=== PATIENT | female | born 2000 | race Caucasian/White ===

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

== ENCOUNTER 2018-01-05 09:21 | Emergency (ER) | payer OTHER ==
[2018-01-05 09:27] VITALS: BP 114/60
--- NOTE | 2018-01-05 10:07 | RADIOLOGY REPORT (SQ) ---
EXAM DESCRIPTION: HAND RIGHT 3 VIEWS COMPLETED DATE/TIME: 01/05/2018 9:58 am REASON FOR STUDY: right middle digit pain COMPARISON: None. EXAM PARAMETERS: NUMBER OF VIEWS: Three views. TECHNIQUE: AP, lateral and oblique radiographic images acquired of the right hand. LIMITATIONS: None. FINDINGS: MINERALIZATION: Normal. BONES: No acute fracture or dislocation. No worrisome bone lesions. JOINTS: No effusions. SOFT TISSUES: No soft tissue swelling. No foreign body. OTHER: No other significant finding. IMPRESSION: 1. NEGATIVE STUDY OF THE RIGHT HAND. TECHNICAL DOCUMENTATION: JOB ID: [id number] [employer]- All Rights Reserved Reading location - IP/workstation name: [email or web address]
[2018-01-05] MEDS ORDERED: IBUPROFEN 600 MG TABLET PO ONE (10:12)
--- NOTE | 2018-01-05 10:17 | ER Document Report ---
HPI - HPI Pain Level: 3 Notes: Patient is a 17-year-old female no significant past medical history who presents to the ED complaining of right third digit pain of her hand status post injury yesterday. Patient states that she got her finger hyperextended and now has pain to the middle and distal part of her finger. She has not noticed any obvious swelling. Denies any IV drug use. She has used some Tylenol for her pain. Denies any headache, fever, URI, sore throat, chest pain , palpitations, syncope, cough, shortness of breath, wheeze, dyspnea, abdominal pain, nausea/vomiting/diarrhea, urinary retention, dysuria, hematuria, numbness/ tingling, muscle paralysis/weakness, or rash. - ROS Systems Reviewed and Negative: Yes All other systems reviewed and negative - CONSTITUTIONAL Constitutional: DENIES: Fever, Chills - EENT EENT: DENIES: Sore Throat, Ear Pain - NEURO Neurology: DENIES: Headache, Weakness, Vision blurred, Dizzinesss / Vertigo - CARDIOVASCULAR Cardiovascular: DENIES: Chest pain - RESPIRATORY Respiratory: DENIES: Trouble Breathing, Coughing - GASTROINTESTINAL Gastrointestinal: DENIES: Abdominal Pain, Black / Bloody Stools - URINARY Urinary: DENIES: Dysuria, Urgency, Frequency - REPRODUCTIVE Reproductive: REPORTS: : - MUSCULOSKELETAL Musculoskeletal: REPORTS: Extremity pain Past Medical History - Social History Smoking Status: Never Smoker Chew tobacco use (# tins/day): No Frequency of alcohol use: None Drug Abuse: None Family History: None Patient has suicidal ideation: No Patient has homicidal ideation: No Pulmonary Medical History: Reports: Hx Asthma Neurological Medical History: Reports: Hx Migraine Renal/ Medical History: Denies: Hx Peritoneal Dialysis Psychiatric Medical History: Reports: Hx Depression Past Surgical History: Reports: Other - Knee surgery Vertical Provider Document - CONSTITUTIONAL Agree With Documented VS: Yes Notes: PHYSICAL EXAMINATION: GENERAL: Well-appearing, well-nourished and in no acute distress LUNGS: Breath sounds clear to auscultation bilaterally and equal. No wheezes rales or rhonchi. HEART: Regular rate and rhythm without murmurs, rubs, gallops. Musculoskeletal: Rt hand/3rd digit: + minimal ecchymosis. No deformity or swelling otherwise. FROM to passive/active. Strength 5+/5. N/V intact distal. + tenderness to the distal phalange and near the PIP joint. No obvious ligamentous instability. Extremities: No cyanosis, clubbing, or edema b/l. Peripheral pulses 2+. Capillary refill less than 3 seconds. NEUROLOGICAL: Normal speech, normal gait. Normal sensory, motor exams PSYCH: Normal mood, normal affect. SKIN: see above. - INFECTION CONTROL TRAVEL OUTSIDE OF THE [place] IN LAST 30 DAYS: No Course - Re-evaluation Re-evalutation: 01/05/18 10:15 Patient is an afebrile, well-hydrated, 17-year-old female who presents to the ED with Rt finger pain 3rd digit which I suspect to be a sprain versus strain. Vitals are acceptable without any significant tachycardia, tachypnea, or hypoxia. PE is otherwise unremarkable for any neurovascular compromise, obvious tendon/ligament rupture, obvious fracture/dislocation, septic joint. X- ray was unremarkable for any acute pathology. splint provided today. Motrin given PO. Patient is nontoxic-appearing. No other labs or imaging warranted at this time based on H&P. Conservative measures otherwise for symptoms. Recheck with your PCM in 3-5 days. Consider consult orthopedics. Return to the ED with any worsening/concerning symptoms otherwise as reviewed in discharge. Patient is in agreement. - Vital Signs Vital signs: Temp Pulse Resp BP Pulse Ox 98.3 F 97 H 18 114/60 100 01/05/18 09:25 01/05/18 09:25 01/05/18 09:25 01/05/18 09:25 01/05/18 09:25 Discharge - Discharge Clinical Impression: Finger pain, right Condition: Stable Disposition: HOME, SELF-CARE Additional Instructions: Rest, Ice, Compression, Elevation Use splint as directed Tylenol/ibuprofen as needed Light stretches daily Strength exercises as able Moist heat and massage may help F/u with your PCP in 3-5 days for a recheck Consider consult(s) with Orthopedics/physical therapy for ongoing/worsening symptoms Return to the ED with any worsening symptoms and/or development of fever, headache, chest pain, palpitations, syncope, shortness of breath, trouble breathing, abdominal pain, n/v/d, muscle weakness/paralysis, numbness/tingling, swelling, redness, or other worsening symptoms that are concerning to you. Referrals: [facility]) [Provider Group] - Follow up as needed
== END 2018-01-05 10:22 | disposition home or self-care (01) ==
LOC: ER 09:21
DX: S60.031A Contusion of right middle finger without damage to nail, initial encounter (principal); M79.644 Pain in right finger(s); X50.0XXA Overexertion from strenuous movement or load, initial encounter; J45.909 Unspecified asthma, uncomplicated
CPT/HCPCS: 99283

== ENCOUNTER 2018-02-20 08:18 | Emergency (ER) | payer OTHER ==
--- NOTE | 2018-02-20 08:45 | ER Document Report ---
ED General - General Chief Complaint: Abdominal Pain Stated Complaint: ABDOMINAL PAIN Time Seen by Provider: 02/20/18 08:45 Notes: Patient is a 17-year-old female that presents to the emergency department for chief complaint of nausea, vomiting and epigastric abdominal pain. Patient reports she has been having the symptoms over the course of the weekend, where she is not been able to keep much food down anything that she drank she starts having vomiting immediately afterwards. She has had pain in the epigastric region, which she does have a history of GERD in the past. She is also had pain in her right upper quadrant. Denies having any associated diarrhea. Denies any lower abdominal pain, dysuria, hematuria, vaginal bleeding or discharge. She does not believe that she is . She currently rates the pain as a 2 out of 10, she did take Pepto-Bismol prior to ED arrival which did give her some relief. Past Medical History: GERD, peptic ulcer disease Past Surgical History: knee surgery Social History: Denies tobacco, ETOH, or drug use. Family History: Reviewed and noncontributory for presenting illness Allergies: Reviewed, see documented allergy list. REVIEW OF SYSTEMS: Other than noted above, the 12 point review of systems was reviewed with the patient and were negative, all pertinent findings are included in the HPI. PHYSICAL EXAMINATION: Vital signs reviewed, nursing noted reviewed. GENERAL: Well-appearing, well-nourished and in no acute distress. HEAD: Atraumatic, normocephalic. EYES: Eyes appear normal, extraocular movements intact, sclera anicteric, conjunctiva are normal. ENT: nares patent, oropharynx clear without exudates. Moist mucous membranes. NECK: Normal range of motion, supple without lymphadenopathy LUNGS: Breath sounds clear to auscultation bilaterally and equal. No wheezes rales or rhonchi. HEART: Regular rate and rhythm without murmurs ABDOMEN: Soft, ruq abdominal pain with palpation, equivical hyde's sign, normoactive bowel sounds. No rebound, guarding, or rigidity. No masses appreciated. EXTREMITIES: Nontender, good range of motion, no pitting or edema. NEUROLOGICAL: No focal neurological deficits. Moves all extremities spontaneously Motor and sensory grossly intact on exam. PSYCH: Normal mood, normal affect. SKIN: Warm, Dry, normal turgor, no rashes or lesions noted on exposed skin TRAVEL OUTSIDE OF THE [place] IN LAST 30 DAYS: No - Related Data Allergies/Adverse Reactions: cephalexin [From Keflex] Allergy (Verified 01/05/18 09:22) Past Medical History - Social History Smoking Status: Never Smoker Family History: None, Reviewed & Not Pertinent Pulmonary Medical History: Reports: Hx Asthma Neurological Medical History: Reports: Hx Migraine Renal/ Medical History: Denies: Hx Peritoneal Dialysis Psychiatric Medical History: Reports: Hx Depression Past Surgical History: Reports: Other - Knee surgery Physical Exam - Vital signs Vitals: Temp Pulse Resp BP Pulse Ox 97.9 F 85 14 119/59 L 100 02/20/18 08:22 02/20/18 08:22 02/20/18 08:22 02/20/18 08:22 02/20/18 08:22 Course - Re-evaluation Re-evalutation: Patient seen and examined vital signs reviewed. Laboratory data and imaging were ordered as appropriate for the patient's presenting symptoms and complaint, with consideration of any critical or life threatening conditions that may be associated with their obtained history and exam as noted above. Patient was treated with phenergan and IVF and pepcid Results were reviewed when available and demonstrated RUQ US was positive for gallstones, but no other acute signs of cholecystitis, clinically and with normal laboratory data, the patient does not seem to have acute cholecystitis. Her HCG test was also positive and serum quant verified this. The patient was re-evaluated and was improved Evaluation was most consistent with cholithiasis with biliary colic and , I advised follow -up with [employer] and to avoid fatty foods, and gave prescription for phenergan to take as needed for nausea. Results were discussed with the patient at this point, after careful consideration I feel that that patient can be discharged from the emergency department, the patient was educated treatments and reasons to return to the emergency department based on their presumed diagnosis as noted above, they were advised to followup with a primary care physician in 2-3 days. Patient was agreeable to plan of care. *Note is created using voice recognition software and may contain spelling, syntax or grammatical errors. Laboratory 02/20/18 02/20/18 02/20/18 08:45 08:45 08:45 WBC 6.9 RBC 4.57 Hgb 13.9 Hct 40.3 MCV 88 MCH 30.3 MCHC 34.4 RDW 13.4 Plt Count 223 Seg Neutrophils % 71.7 Lymphocytes % 24.0 Monocytes % 3.5 Eosinophils % 0.3 Basophils % 0.5 Absolute Neutrophils 5.0 Absolute Lymphocytes 1.7 Absolute Monocytes 0.2 Absolute Eosinophils 0.0 Absolute Basophils 0.0 Sodium 139.3 Potassium 4.1 Chloride 104 Carbon Dioxide 24 Anion Gap 11 BUN 4 L Creatinine 0.50 L Est GFR ( Amer) > 60 Est GFR (Non-Af Amer) > 60 Glucose 86 Calcium 9.6 Total Bilirubin 0.5 Direct Bilirubin 0.2 Neonat Total Bilirubin Not Reportable Neonat Direct Bilirubin Not Reportable Neonat Indirect Bili Not Reportable AST 14 ALT 9 Alkaline Phosphatase 47 L Total Protein 7.2 Albumin 4.1 Lipase 48.7 Beta HCG, Quant 16748.00 H Total Beta HCG POSITIVE Urine Color YELLOW Urine Appearance CLOUDY Urine pH 6.0 Ur Specific [place] 1.017 Urine Protein NEGATIVE Urine Glucose (UA) NEGATIVE Urine Ketones NEGATIVE Urine Blood NEGATIVE Urine Nitrite NEGATIVE Urine Bilirubin NEGATIVE Urine Urobilinogen NEGATIVE Ur Leukocyte Esterase NEGATIVE Urine WBC (Auto) 1 Urine RBC (Auto) 2 Urine Bacteria (Auto) TRACE Squamous Epi Cells Auto 22 Urine Mucus (Auto) MANY Urine Ascorbic Acid NEGATIVE Urine HCG, Qual POSITIVE H Abdomen Ultrasound 02/20/18 09:06 IMPRESSION: Gallstones with positive sonographic Hyde's sign. No pericholecystic edema or wall thickening. - Vital Signs Vital signs: Temp Pulse Resp BP Pulse Ox 98.2 F 68 18 118/74 100 02/20/18 13:07 02/20/18 13:07 02/20/18 13:07 02/20/18 13:07 02/20/18 13:07 - Laboratory Result Diagrams: 02/20/18 08:45 02/20/18 08:45 Laboratory results interpreted by me: 02/20/18 02/20/18 08:45 08:45 BUN 4 L Creatinine 0.50 L Alkaline Phosphatase 47 L Beta HCG, Quant 12489.00 H Urine HCG, Qual POSITIVE H Discharge - Discharge Clinical Impression: Biliary colic Cholelithiasis Qualifiers: Cholelithiasis location: gallbladder Cholecystitis presence: without cholecystitis Qualifiers: Weeks of gestation: unspecified Qualified Code(s): Z34.90 - Encounter for supervision of normal , unspecified, unspecified trimester Condition: Stable Disposition: HOME, SELF-CARE Instructions: Abdominal Pain ([facility]), Gallbladder Disease ([facility]), ([facility]) Prescriptions: Promethazine HCl [Phenergan 25 mg Tablet] 1 tab PO Q8H PRN #15 tablet PRN Reason: nausea/vomiting Referrals: [facility] [Provider Group] - Follow up in 3-5 days
[2018-02-20] MEDS ORDERED: NORMAL SALINE 1000 ML 1,000 ML IV ONE (09:06)
[2018-02-20] MEDS ORDERED: ONDANSETRON HCL INJ/PF 4 MG/2 ML SDV IV ONE (09:07)
[2018-02-20] MEDS ORDERED: FAMOTIDINE INJ/PF 20 MG/2 ML SDV IV ONE (09:07)
[2018-02-20 09:12] LABS: APPEARANCE,URINE CLOUDY; BILIRUBIN,URINE NEGATIVE (NEGATIVE); COLOR,URINE YELLOW; GLUCOSE, URINE NEGATIVE (NEGATIVE); KETONES,URINE NEGATIVE (NEGATIVE); LEUKOCYTE ESTERASE,URINE NEGATIVE (NEGATIVE); NITRITE,URINE NEGATIVE (NEGATIVE); PROTEIN,URINE NEGATIVE (NEGATIVE); URINE SPECIFIC GRAVITY 1.017; UROBILINOGEN,URINE NEGATIVE mg/dL (<2.0)
[2018-02-20] MEDS ORDERED: PROMETHAZINE HCL INJ 25 MG/1 ML VIAL IV ONE (09:19)
--- NOTE | 2018-02-20 11:04 | RADIOLOGY REPORT (SQ) ---
EXAM DESCRIPTION: U/S ABDOMEN LIMITED W/O DOP COMPLETED DATE/TIME: 02/20/2018 10:48 am REASON FOR STUDY: ruq pain COMPARISON: None. TECHNIQUE: Dynamic and static grayscale images acquired of the abdomen and recorded on PACS. Additio nal selected color Doppler and spectral images recorded. LIMITATIONS: None. FINDINGS: PANCREAS: No masses. Visualized pancreatic duct normal caliber. LIVER: No masses. Echotexture normal. LIVER VASCULATURE: Normal directional flow of the main portal vein and hepatic veins. GALLBLADDER: There are gallstones. No wall thickening. No pericholecystic edema. ULTRASOUND-DETECTED HYDE'S SIGN: Positive. INTRAHEPATIC DUCTS AND COMMON DUCT: CBD and intrahepatic ducts normal caliber. No filling defects. INFERIOR VENA CAVA: Normal flow. AORTA: No aneurysm. RIGHT KIDNEY: Normal size. Normal echogenicity. No solid or suspicious masses. No hydronephrosis. No calcifications. PERITONEAL AND RIGHT PLEURAL SPACE: No ascites or effusions. OTHER: No other significant findings. IMPRESSION: Gallstones with positive sonographic Hyde's sign. No pericholecystic edema or wall th ickening. TECHNICAL DOCUMENTATION: JOB ID: [id number] [employer]- All Rights Reserved Reading location - IP/workstation name: [email or web address]
[2018-02-20 11:21] LABS: ABSOLUTE LYMPHOCYTES (AUTO) 1.7 10^3/uL (0.5-4.7); ABSOLUTE MONOCYTES (AUTO) 0.2 10^3/uL (0.1-1.4); BASOPHILS % (AUTO) 0.5 % (0-2); EOSINOPHILS % (AUTO) 0.3 % (0-6); HEMATOCRIT 40.3 % (36.0-47.0); HEMOGLOBIN 13.9 g/dL (12.0-15.5); MEAN CORPUSCULAR HEMOGLOBIN 30.3 pg (27.0-33.4); MEAN CORPUSCULAR HGB CONC 34.4 g/dL (32.0-36.0); MEAN CORPUSCULAR VOLUME 88 fl (80-97); MONOCYTES % (AUTO) 3.5 % (3-13); PLATELET COUNT 223 10^3/uL (150-450); RED BLOOD COUNT 4.57 10^6/uL (3.72-5.28); RED CELL DISTRIBUTION WIDTH 13.4 % (11.5-14.0); SEGMENTED NEUTROPHILS % (AUTO) 71.7 % (42-78); TOTAL CELLS COUNTED % (AUTO) 100 %; WHITE BLOOD COUNT 6.9 10^3/uL (4.0-10.5)
[2018-02-20 11:45] LABS: ALANINE AMINOTRANSFERASE 9 U/L (5-35); ALBUMIN 4.1 g/dL (3.7-5.6); ALKALINE PHOSPHATASE 47 U/L (50-135); ANION GAP 11 (5-19); ASPARTATE AMINO TRANSFERASE 14 U/L (5-30); BILIRUBIN,DIRECT 0.2 mg/dL (0.0-0.4); BILIRUBIN,TOTAL 0.5 mg/dL (0.2-1.3); BLOOD UREA NITROGEN 4 mg/dL (7-20); CALCIUM 9.6 mg/dL (8.4-10.2); CARBON DIOXIDE 24 mmol/L (22-30); CHLORIDE 104 mmol/L (98-107); GLUCOSE 86 mg/dL (75-110); LIPASE 48.7 U/L (23-300); POTASSIUM 4.1 mmol/L (3.6-5.0); SODIUM 139.3 mmol/L (137-145); TOTAL PROTEIN 7.2 g/dL (6.3-8.2)
[2018-02-20 13:08] VITALS: BP 118/74
== END 2018-02-20 13:09 | disposition home or self-care (01) ==
LOC: ER 08:18
DX: O99.611 Diseases of the digestive system complicating pregnancy, first trimester (principal); K80.70 Calculus of gallbladder and bile duct without cholecystitis without obstruction; R10.13 Epigastric pain; O21.9 Vomiting of pregnancy, unspecified; K21.9 Gastro-esophageal reflux disease without esophagitis
CPT/HCPCS: 99284; 96361; 96374; 96375; 36415; 84702; 83690; 85025; 81025; 80053; 81001; 76705; J2550; J7030; S0028

== ENCOUNTER 2018-02-23 16:27 | Emergency (ER) | payer OTHER ==
[2018-02-23] MEDS ORDERED: NORMAL SALINE 1000 ML 1,000 ML IV ONE (18:26)
--- NOTE | 2018-02-23 19:03 | ER Document Report ---
ED GI/ - General Chief Complaint: Abdominal Pain Stated Complaint: ABDOMINAL PAIN, VOMITING Time Seen by Provider: 02/23/18 18:25 Mode of Arrival: Ambulatory Information source: Patient Notes: 17-year-old female presented to ED for complaint of right upper abdominal pain. She states she has had nausea and vomiting all day. She states she was diagnosed with gallstones a couple days ago as well as . She states she is not able to keep any fluids down. She has a 4-month-old baby at home. She states she knows that she is can be nauseated throughout her whole . She states she tried to eat macaroni and cheese earlier today and became extremely nauseated with pain. States she went to her primary care doctor and they sent her to the ED as she is and cannot hold down fluids or food. Patient is alert and oriented respirations regular and unlabored and in no acute distress when she was evaluated. TRAVEL OUTSIDE OF THE [place] IN LAST 30 DAYS: No - HPI Patient complains to provider of: Abdominal pain, - She was told she was about a couple weeks , Vomiting, Other - Was diagnosed with gallstones recently Onset: Other - States she knows she has gallstones and she followed up with her primary doctor as she was told. She states she had another severe episode of abdominal pain and nausea vomiting today after trying to eat macaroni and cheese. Quality of pain: Sharp Severity at maximum: Moderate Severity in ED: Moderate Pain Level: 3 Location: RUQ Menstrual period history: : 2 Para: 1 heart tones (bpm): 168 - On ultrasound EDC: 09/09/18 OB ultrasound done: Yes Associated symptoms: Nausea, Vomiting Exacerbated by: Food Relieved by: Denies Similar symptoms previously: Yes Recently seen / treated by doctor: Yes - Related Data Allergies/Adverse Reactions: cephalexin [From Keflex] Allergy (Verified 02/23/18 16:29) Past Medical History - General Information source: Patient - Social History Smoking Status: Never Smoker Frequency of alcohol use: None Drug Abuse: None Family History: None, Reviewed & Not Pertinent Patient has suicidal ideation: No Patient has homicidal ideation: No - Past Medical History Cardiac Medical History: Reports: None Pulmonary Medical History: Reports: Hx Asthma EENT Medical History: Reports: None Neurological Medical History: Reports: Hx Migraine Endocrine Medical History: Reports: None Renal/ Medical History: Reports: None Malignancy Medical History: Reports: None GI Medical History: Reports: Other - gallstones Musculoskeletal Medical History: Reports Hx Musculoskeletal Trauma Skin Medical History: Reports None Psychiatric Medical History: Reports: Hx Depression Traumatic Medical History: Reports: None Infectious Medical History: Reports: None Past Surgical History: Reports: Hx Orthopedic Surgery - Knee surgery for ligament damage Review of Systems - Review of Systems Notes: REVIEW OF SYSTEMS: CONSTITUTIONAL : Denies fever, chills, or sweats. Denies recent illness. EENT: Denies eye, ear, throat, or mouth pain or symptoms. Denies nasal or sinus congestion or discharge. Denies throat, tongue, or mouth swelling or difficulty swallowing. CARDIOVASCULAR: Denies chest pain. Denies palpitations or racing or irregular heart beat. Denies ankle edema. RESPIRATORY: Denies cough, cold, or chest congestion. Denies shortness of breath, difficulty breathing, or wheezing. GASTROINTESTINAL: 17-year-old female presented to ED for complaint of nausea vomiting upper abdominal pain and . She states she was just seen a couple days ago and diagnosed with gallstones and that she was a couple weeks . She went to her primary care doctor to get a referral to CALL OUT CLERK and follow-up for the gallstones. The she states they sent her to the ED for severe nausea and vomiting and upper abdominal pain after she ate macaroni and cheese. Denies blood in vomitus, stools, or per rectum. Denies black, tarry stools. Denies constipation. GENITOURINARY: Denies difficulty urinating, painful urination, burning, frequency, blood in urine, or discharge. FEMALE GENITOURINARY: Denies vaginal bleeding, heavy or abnormal periods, irregular periods. Denies vaginal discharge or odor. MUSCULOSKELETAL: Denies back or neck pain or stiffness. Denies joint pain or swelling. SKIN: Denies rash, lesions or sores. HEMATOLOGIC : Denies easy bruising or bleeding. LYMPHATIC: Denies swollen, enlarged glands. NEUROLOGICAL: Denies confusion or altered mental status. Denies passing out or loss of consciousness. Denies dizziness or lightheadedness. Denies headache. Denies weakness or paralysis or loss of use of either side. Denies problems with gait or speech. Denies sensory loss, numbness, or tingling. Denies seizures. PHYSICAL EXAMINATION: GENERAL: Well-appearing, well-nourished and in no acute distress. HEAD: Atraumatic, normocephalic. EYES: Pupils equal round and reactive to light, extraocular movements intact, conjunctiva are normal. ENT: Nares patent, oropharynx clear without exudates. Moist mucous membranes. NECK: Normal range of motion, supple without lymphadenopathy LUNGS: Breath sounds clear to auscultation bilaterally and equal. No wheezes rales or rhonchi. HEART: Regular rate and rhythm without murmurs ABDOMEN: Right upper quadrant abdominal tenderness, no guarding, no rebound. No masses appreciated. Female : deferred Musculoskeletal: Normal range of motion, no pitting or edema. No cyanosis. NEUROLOGICAL: Cranial nerves grossly intact. Normal speech, normal gait. Normal sensory, motor exams PSYCH: Normal mood, normal affect. SKIN: Warm, Dry, normal turgor, no rashes or lesions noted. PSYCHIATRIC: Denies anxiety or stress. Denies depression, suicidal ideation, or homicidal ideation. ALL OTHER SYSTEMS REVIEWED AND NEGATIVE. Dictation was performed using [employer] voice recognition software Physical Exam - Vital signs Vitals: Temp Pulse Resp BP Pulse Ox 98.3 F 97 H 16 120/68 99 02/23/18 16:32 02/23/18 16:32 02/23/18 16:32 02/23/18 16:32 02/23/18 16:32 Course - Re-evaluation Re-evalutation: 02/24/18 02:57 Patient given instructions on diet for gallbladder disease while . Surgery was consulted while patient was here and they stated that due to the fact that she is 13 weeks that they would try to hold off until after delivery of the baby before doing the surgery on the gallstones. She will need to be monitored by her primary care doctor and her CALL OUT CLERK. He stated that surgery would not be completed and that she developed cholecystitis. Ultrasound demonstrated that there was no cholecystitis at this time. There is no fever no elevated white count. - Vital Signs Vital signs: Temp Pulse Resp BP Pulse Ox 99.0 F 99 H 20 129/67 H 99 02/23/18 21:17 02/23/18 21:17 02/23/18 21:17 02/23/18 21:17 02/23/18 21:17 - Laboratory Result Diagrams: 02/23/18 18:47 02/23/18 18:47 Laboratory results interpreted by me: 02/23/18 02/23/18 02/23/18 18:47 18:47 18:47 Monocytes % 2.4 L BUN 4 L Creatinine 0.50 L Serum HCG, Qual POSITIVE H Urine Ketones 02/23/18 18:47 Monocytes % BUN Creatinine Serum HCG, Qual Urine Ketones 20 H - Diagnostic Test Radiology reviewed: Image reviewed, Reports reviewed Discharge - Discharge Clinical Impression: Cholelithiasis Qualifiers: Cholelithiasis location: gallbladder Cholecystitis presence: without cholecystitis Biliary obstruction: without biliary obstruction Qualified Code(s) : K80.20 - Calculus of gallbladder without cholecystitis without obstruction Qualifiers: Weeks of gestation: 13 weeks Qualified Code(s): Z3A.13 - 13 weeks gestation of Condition: Stable Disposition: HOME, SELF-CARE Additional Instructions: Gallbladder Disease Your evaluation shows evidence of gallbladder disease. The gallbladder is a pouch under the liver which stores bile. Stones, infection, or irritation of the gallbladder cause attacks of pain. Certain foods -- fats in particular -- may provoke attacks. The usual treatment for gallbladder disease is surgical removal of the gallbladder -- called a cholecystectomy. You will be referred to a physician qualified to advise you on the best treatment for your problem. Hospitalization is not necessary. Take clear liquids only until you are painfree. After that, you should stay on a low-fat diet, with frequent SMALL meals. Call the doctor or return at once if you develop severe pain, repeated vomiting, fever, or jaundice (a yellow color in the skin and whites of the eyes) . You cannot eat any fatty or spicy foods as this will cause you pain. While you are they are going to try to not do the surgery to remove your gallbladder. You will need to be careful what you eat at all times throughout your . Follow-up with your primary doctor and get your referral to your CALL OUT CLERK as you are is 13 weeks . At this stage of they try not to do surgery unless absolutely necessary. Your gallbladder is not infected at this time it is just gallstones. Antinausea Medication You have been given a medication to suppress nausea and vomiting. This type of medication can be given as a shot, pill, or suppository. It will usually last for many hours. Pills and shots usually last six to eight hours, suppositories last about 12 hours. For the typical illness, only one or two doses of the medication may be necessary. Mild lightheadedness may occur. This type of medicine can cause drowsiness. Do not drive or operate dangerous machinery while under its influence. Do not mix with alcohol. See your doctor at once if you have muscle spasms or tightness, or uncontrollable motions (particularly of the neck, mouth, or jaw). Persistent vomiting or severe lightheadedness should also be evaluated by the physician. You are . care is best started as early in as possible. If you're unsure about continuing this , you should discuss this with your physician or with game bird farmer at [facility]. You should take only medications approved by your physician. Acetaminophen can safely be taken for minor pains. As a rule, medication for chronic conditions such as asthma or seizures can safely be continued. You should discuss with the physician every medicine you take. Any regular exercise program can be continued. Talk to your physician, however, before engaging in competitive or demanding sports. Alcohol, smoking, and "street drugs" are dangerous to your baby. Cocaine is especially dangerous. Don't use any illicit drugs! FOLLOW-UP CARE: If you have been referred to a physician for follow-up care, call the physician s office for an appointment as you were instructed or within the next two days. If you experience worsening or a significant change in your symptoms, notify the physician immediately or return to the Emergency Department at any time for re-evaluation. Referrals: PRAVEENA RYAN PA [Primary Care Provider] - Follow up as needed [facility] [Provider Group] - Follow up as needed
[2018-02-23 19:15] LABS: ABSOLUTE MONOCYTES (AUTO) 0.2 10^3/uL (0.1-1.4); ABSOLUTE NEUT (AUTO) 6.4 10^3/uL (1.7-8.2); BASOPHILS % (AUTO) 0.3 % (0-2); EOSINOPHILS % (AUTO) 0.3 % (0-6); HEMATOCRIT 39.7 % (36.0-47.0); LYMPHOCYTES % (AUTO) 22.7 % (13-45); MEAN CORPUSCULAR HEMOGLOBIN 30.8 pg (27.0-33.4); MEAN CORPUSCULAR HGB CONC 35.4 g/dL (32.0-36.0); MEAN CORPUSCULAR VOLUME 87 fl (80-97); MONOCYTES % (AUTO) 2.4 % (3-13); PLATELET COUNT 235 10^3/uL (150-450); RED BLOOD COUNT 4.57 10^6/uL (3.72-5.28); RED CELL DISTRIBUTION WIDTH 13.6 % (11.5-14.0); SEGMENTED NEUTROPHILS % (AUTO) 74.3 % (42-78); TOTAL CELLS COUNTED % (AUTO) 100 %; WHITE BLOOD COUNT 8.6 10^3/uL (4.0-10.5)
[2018-02-23 19:17] LABS: APPEARANCE,URINE SLIGHTLY-CLOUDY; BILIRUBIN,URINE NEGATIVE (NEGATIVE); COLOR,URINE YELLOW; GLUCOSE, URINE NEGATIVE (NEGATIVE); KETONES,URINE 20 mg/dL (NEGATIVE); LEUKOCYTE ESTERASE,URINE NEGATIVE (NEGATIVE); NITRITE,URINE NEGATIVE (NEGATIVE); PROTEIN,URINE NEGATIVE (NEGATIVE); URINE SPECIFIC GRAVITY 1.015; UROBILINOGEN,URINE NEGATIVE mg/dL (<2.0)
[2018-02-23 19:31] LABS: ALANINE AMINOTRANSFERASE 11 U/L (5-35); ALBUMIN 4.2 g/dL (3.7-5.6); ALKALINE PHOSPHATASE 51 U/L (50-135); ANION GAP 14 (5-19); ASPARTATE AMINO TRANSFERASE 13 U/L (5-30); BILIRUBIN,DIRECT 0.2 mg/dL (0.0-0.4); BILIRUBIN,TOTAL 0.5 mg/dL (0.2-1.3); BLOOD UREA NITROGEN 4 mg/dL (7-20); CALCIUM 9.4 mg/dL (8.4-10.2); CARBON DIOXIDE 22 mmol/L (22-30); CHLORIDE 103 mmol/L (98-107); GLUCOSE 83 mg/dL (75-110); LIPASE 50.9 U/L (23-300); POTASSIUM 3.8 mmol/L (3.6-5.0); SODIUM 138.7 mmol/L (137-145); TOTAL PROTEIN 7.2 g/dL (6.3-8.2)
--- NOTE | 2018-02-23 19:39 | RADIOLOGY REPORT (SQ) ---
EXAM DESCRIPTION: U/S OB TRANSVAGINAL W/O DOP COMPLETED DATE/TIME: 02/23/2018 7:28 pm REASON FOR STUDY: gall stone with hcg 73416 on 02/20/18 COMPARISON: None. TECHNIQUE: Transabdominal static and realtime grayscale images acquired of the pelvis. Additional se lected spectral and color Doppler images recorded. All images stored on PACs. bHCG: Not applicable. CLINICAL DATES: Unknown LIMITATIONS: None. FINDINGS: FETUS: Single Living intrauterine . ULTRASOUND EGA: 13 weeks 1 day ULTRASOUND BRAYAN: 08/30/2018 EFW: Not applicable less than 20 weeks. CRL: 6.8 cm. FHR: 168 beats per minute. SURVEY: Too early to assess. AMNIOTIC FLUID: Adequate amount. PLACENTA: Not yet developed due to early gestation. SUBCHORIONIC BLEED: No SIZE OF BLEED: Not applicable. UTERUS: No masses or anomalies. 10.7 x 7.9 x 8.3 cm. CERVICAL LENGTH: 3.4 cm. Closed. RIGHT ADNEXA: Ovary not seen. No adnexal free fluid. No adnexal masses. LEFT ADNEXA: Ovary not seen. No adnexal free fluid. No adnexal masses. FREE FLUID: None. OTHER: No other significant finding. IMPRESSION: LIVING INTRAUTERINE . EGA 13 weeks 1 day. Trimester of : Second. TECHNICAL DOCUMENTATION: JOB ID: [id number] [employer]- All Rights Reserved Reading location - IP/workstation name: [email or web address]
--- NOTE | 2018-02-23 19:41 | RADIOLOGY REPORT (SQ) ---
EXAM DESCRIPTION: U/S ABDOMEN LIMITED W/O DOP COMPLETED DATE/TIME: 02/23/2018 7:28 pm REASON FOR STUDY: with gall stones COMPARISON: 02/20/2018 TECHNIQUE: Dynamic and static grayscale images acquired of the abdomen and recorded on PACS. Additio varsha selected color Doppler and spectral images recorded. LIMITATIONS: None. FINDINGS: PANCREAS: No masses. Visualized pancreatic duct normal caliber. LIVER: No masses. Echotexture normal. LIVER VASCULATURE: Normal directional flow of the main portal vein and hepatic veins. GALLBLADDER: Gallstone(s). No pericholecystic fluid. No wall thickening. ULTRASOUND-DETECTED GUEVARA'S SIGN: Negative. INTRAHEPATIC DUCTS AND COMMON DUCT: CBD and intrahepatic ducts normal caliber. No filling defects. C ommon duct measures 4 mm. INFERIOR VENA CAVA: Normal flow. AORTA: No aneurysm. RIGHT KIDNEY: Normal size. Normal echogenicity. No solid or suspicious masses. No hydronephrosis. No calcifications. PERITONEAL AND RIGHT PLEURAL SPACE: No ascites or effusions. OTHER: No other significant findings. IMPRESSION: Cholelithiasis without sonographic evidence of acute cholecystitis. TECHNICAL DOCUMENTATION: JOB ID: [id number] [employer]- All Rights Reserved Reading location - IP/workstation name: [email or web address]
[2018-02-23 21:17] VITALS: BP 129/67
== END 2018-02-23 21:17 | disposition home or self-care (01) ==
LOC: ER 16:27
DX: O99.611 Diseases of the digestive system complicating pregnancy, first trimester (principal); K80.20 Calculus of gallbladder without cholecystitis without obstruction; R11.10 Vomiting, unspecified; R10.10 Upper abdominal pain, unspecified; Z3A.13 13 weeks gestation of pregnancy
CPT/HCPCS: 99284; 96360; 96361; 36415; 83690; 84703; 85025; 80053; 81001; 76817; 76705; J7030

== ENCOUNTER 2018-03-09 15:09 | Emergency (ER) | payer OTHER ==
[2018-03-09 15:14] VITALS: BP 121/58
[2018-03-09] MEDS ORDERED: ACETAMINOPHEN 325 MG TABLET PO ONE (15:34)
--- NOTE | 2018-03-09 15:38 | ER Document Report ---
ED Head/Face/Scalp Injury - General Chief Complaint: Head Injury without LOC Stated Complaint: HEAD INJURY Time Seen by Provider: 03/09/18 15:34 Mode of Arrival: Ambulatory Information source: Patient Notes: History of Present Illness Date:[same as orders] Time:[ ] Chief Complaint:[laceration] [ 17 years old female who fell backwards and hit the right side of the occipital region and sustained a small laceration. Happened just prior to arrival. Because the dog jumped on her. Has mild headache. No focal weakness numbness tingling sensation. Denies any neck pain neck stiffness denies any pain over the upper limbs or lower limbs. Denies any chest pain. Was nauseous once and vomited once soon after the fall. She is 15 weeks .] History obtained from [patient] Symptoms began: [immediately prior to arrival] Onset: [sudden] Timing: [constant] Quality: [``pain] Intensity: [moderate] Location: [As above ] Radiation:[ none] Migration: none Aggravating factors: [none] Relieving factors: [none] Denies numbness Denies weakness Denies foreign body sensation Denies difficulty moving effected body part Denies additional injuries Denies constitutional symptoms Review of Systems All other systems negative as reviewed. CONSTITUTIONAL No Fever. CARDIOVASCULAR No chest pain. RESPIRATORY No SOB. GI No abdominal pain SKIN No rash. Physical Exam CONSTITUTIONAL Vital signs reviewed, Comfortable, Alert and oriented X 3. HEAD [ ]Nontender, right occipital 1.5 cm laceration, Normal cephalic. EYES No discharge from eye, Sclera are not injected, Extraocular muscles intact, Conjunctiva are normal. Pupils equal, round, reactive to light, 2mm bilaterally. ENT Ears normal to inspection, Nose examination normal, Oropharynx normal, Mucous membranes pink, moist, normal in color. NECK No focal bony tenderness, Normal ROM, trachea midline. RESPIRATORY/CHEST Chest is non-tender, Breath sounds normal, No respiratory distress. CARDIOVASCULAR RRR, Heart sounds normal. ABDOMEN Abdomen is non-tender, No masses, Bowel sounds normal, No distension, No peritoneal signs. BACK No focal bony tenderness, [ ] Normal inspection. UPPER EXTREMITY [ ]Inspection normal, no focal bony tenderness, no snuff box tenderness, FROM of bilateral shoulders, elbows, wrists, fingers x 5, NVI distally, No cyanosis/clubbing/edema. LOWER EXTREMITY [ ]Inspection normal, no focal bony tenderness, FROM of bilateral hips, knees, ankles, toes x 5, NVI distally, bilateral knees stable without effusion No cyanosis/clubbing/edema, No calf tenderness. NEURO Cranial Nerves intact, Normal speech, Motor exam normal, Sensory exam normal. SKIN Skin is warm and dry, No rash. PSYCHIATRIC Normal affect. TRAVEL OUTSIDE OF THE [place] IN LAST 30 DAYS: No - HPI Notes: Dictated - Related Data Allergies/Adverse Reactions: cephalexin [From Keflex] Allergy (Verified 03/09/18 15:09) Past Medical History - Social History Smoking Status: Never Smoker Frequency of alcohol use: None Drug Abuse: None Lives with: Family Family History: None, Reviewed & Not Pertinent Patient has suicidal ideation: No Patient has homicidal ideation: No Pulmonary Medical History: Reports: Hx Asthma Neurological Medical History: Reports: Hx Migraine Renal/ Medical History: Denies: Hx Peritoneal Dialysis Musculoskeletal Medical History: Reports Hx Musculoskeletal Trauma Psychiatric Medical History: Reports: Hx Depression Past Surgical History: Reports: Hx Orthopedic Surgery - Knee surgery for ligament damage, Other - Knee surgery Review of Systems - Review of Systems Notes: Dictated Physical Exam - Vital signs Vitals: Temp Pulse Resp BP Pulse Ox 98.8 F 112 H 14 121/58 L 98 03/09/18 15:11 03/09/18 15:11 03/09/18 15:11 03/09/18 15:11 03/09/18 15:11 - Notes Notes: Dictated Course - Vital Signs Vital signs: Temp Pulse Resp BP Pulse Ox 98.8 F 112 H 14 121/58 L 98 03/09/18 15:11 03/09/18 15:11 03/09/18 15:11 03/09/18 15:11 03/09/18 15:11 Procedures - Laceration/Wound Repair Right Head Time completed: 15:30 Wound length (cm): 1.5 Wound's Depth, Shape: Superficial, Linear Wound Repaired With: [place] Discharge - Discharge Clinical Impression: Head injury Qualifiers: Encounter type: initial encounter Qualified Code(s): S09.90XA - Unspecified injury of head, initial encounter Laceration of scalp Qualifiers: Encounter type: initial encounter Qualified Code(s): S01.01XA - Laceration without foreign body of scalp, initial encounter Condition: Fair Disposition: HOME, SELF-CARE Instructions: Laceration Care ([facility]), Head Injury Precautions ([facility]) Referrals: PRAVEENA RYAN PA [Primary Care Provider] - Follow up as needed
== END 2018-03-09 15:42 | disposition home or self-care (01) ==
LOC: ER 15:09
DX: O9A.212 Injury, poisoning and certain other consequences of external causes complicating pregnancy, second trimester (principal); S01.01XA Laceration without foreign body of scalp, initial encounter; S09.90XA Unspecified injury of head, initial encounter; W18.30XA Fall on same level, unspecified, initial encounter; Z3A.15 15 weeks gestation of pregnancy; Z88.3 Allergy status to other anti-infective agents
CPT/HCPCS: 99283

== ENCOUNTER 2018-08-23 21:18 | Outpatient (CLI) | payer OTHER ==
[2018-08-23 23:12] LABS: APPEARANCE,URINE CLEAR; BILIRUBIN,URINE NEGATIVE (NEGATIVE); COLOR,URINE YELLOW; GLUCOSE, URINE NEGATIVE (NEGATIVE); KETONES,URINE NEGATIVE (NEGATIVE); LEUKOCYTE ESTERASE,URINE NEGATIVE (NEGATIVE); NITRITE,URINE NEGATIVE (NEGATIVE); PROTEIN,URINE NEGATIVE (NEGATIVE); URINE SPECIFIC GRAVITY 1.015; UROBILINOGEN,URINE NEGATIVE mg/dL (<2.0)
[2018-08-23] MEDS ORDERED: HYDROXYZINE PAMOATE 50 MG CAPSULE PO ONE (23:19)
[2018-08-23 23:30] LABS: URINE AMPHETAMINES SCREEN NEGATIVE; URINE BARBITURATES SCREEN NEGATIVE; URINE BENZODIAZEPINES SCREEN NEGATIVE; URINE COCAINE SCREEN NEGATIVE; URINE MARIJUANA (THC) SCREEN NEGATIVE; URINE METHADONE SCREEN NEGATIVE; URINE PHENCYCLIDINE SCREEN NEGATIVE
[2018-08-24] MEDS ORDERED: HYDROXYZINE PAMOATE 50 MG CAPSULE ONE (00:28)
--- NOTE | 2018-08-24 01:20 | Non Stress Test Report ---
Non Stress Test Datetime Report Generated by CPN: 08/24/2018 01:20 DEMOGRAPHIC Test Number: 1 EGA NST: 39.0 INDICATION Indication for Study: Ordered by Provider VITAL SIGNS Temperature - NST: 98.2 Pulse - NST: 100 RESP - NST: 16 NBPSYS NST: 124 NBPDIA NST: 66 MONITORING Monitor Explained: Monitor Explained; Test Explained; Patient Verbalized Understanding Time on Monitor: 08/23/2018 21:36 Time off Monitor: 08/24/2018 00:31 NST Duration: 175 NST INTERVENTIONS NST Interventions: PO Hydration Physician Notified NST: Dr Bain BABY A: [id number] BABY A Movement : Decreased FHR Baseline : 120 Accelerations : 15X15 Decelerations : None Variability : Moderate 6-25bpm NST Review: Meets Criteria for Reactive NST NST Review and Verified By : LUCIANA Pleitez NST Results: Reactive NST REPORT Report Trigger: Send Report
== END 2018-08-24 00:51 | disposition home or self-care (01) ==
LOC: LC 21:18
PROVIDERS: ATTEND Obstetrics & Gynecology Gynecology
PROC: 4A1HXCZ Monitoring of Products of Conception, Cardiac Rate, External Approach (ICD-10-PCS; principal; 2018-08-23)
DX: O36.8130 Decreased fetal movements, third trimester, not applicable or unspecified (principal); O47.1 False labor at or after 37 completed weeks of gestation; Z3A.39 39 weeks gestation of pregnancy
CPT/HCPCS: 80307; 81005

== ENCOUNTER 2018-08-27 17:48 | Inpatient (IN) | payer OTHER ==
[2018-08-27 18:26] LABS: APPEARANCE,URINE SLIGHTLY-CLOUDY; BILIRUBIN,URINE NEGATIVE (NEGATIVE); COLOR,URINE YELLOW; GLUCOSE, URINE NEGATIVE (NEGATIVE); KETONES,URINE NEGATIVE (NEGATIVE); LEUKOCYTE ESTERASE,URINE TRACE (NEGATIVE); NITRITE,URINE NEGATIVE (NEGATIVE); PROTEIN,URINE NEGATIVE (NEGATIVE); URINE SPECIFIC GRAVITY 1.009; UROBILINOGEN,URINE NEGATIVE mg/dL (<2.0)
[2018-08-27 18:41] LABS: URINE AMPHETAMINES SCREEN NEGATIVE; URINE BARBITURATES SCREEN NEGATIVE; URINE BENZODIAZEPINES SCREEN NEGATIVE; URINE COCAINE SCREEN NEGATIVE; URINE MARIJUANA (THC) SCREEN NEGATIVE; URINE METHADONE SCREEN NEGATIVE; URINE PHENCYCLIDINE SCREEN NEGATIVE
[2018-08-27] MEDS ORDERED: RINGERS SOLUTION,LACTATED 1,000 ML IV PRN (20:00)
[2018-08-27] MEDS ORDERED: RINGERS SOLUTION,LACTATED 1,000 ML IV ONE (20:00)
[2018-08-27 21:16] LABS: ABSOLUTE EOSINOPHILS # (AUTO) 0.1 10^3/uL (0.0-0.6); ABSOLUTE LYMPHOCYTES (AUTO) 1.7 10^3/uL (0.5-4.7); ABSOLUTE MONOCYTES (AUTO) 0.4 10^3/uL (0.1-1.4); ABSOLUTE NEUT (AUTO) 5.9 10^3/uL (1.7-8.2); BASOPHILS % (AUTO) 0.4 % (0-2); EOSINOPHILS % (AUTO) 0.9 % (0-6); HEMATOCRIT 35.3 % (36.0-47.0); MEAN CORPUSCULAR HEMOGLOBIN 30.6 pg (27.0-33.4); MEAN CORPUSCULAR HGB CONC 34.1 g/dL (32.0-36.0); MEAN CORPUSCULAR VOLUME 90 fl (80-97); MONOCYTES % (AUTO) 4.5 % (3-13); PLATELET COUNT 169 10^3/uL (150-450); RED BLOOD COUNT 3.94 10^6/uL (3.72-5.28); RED CELL DISTRIBUTION WIDTH 13.8 % (11.5-14.0); SEGMENTED NEUTROPHILS % (AUTO) 73.2 % (42-78); TOTAL CELLS COUNTED % (AUTO) 100 %; WHITE BLOOD COUNT 8.1 10^3/uL (4.0-10.5)
[2018-08-27] MEDS ORDERED: MISOPROSTOL 0.2 MG TABLET ONE (21:51)
[2018-08-27] MEDS ORDERED: LIDOCAINE 1% INJ-PF (10 MG/ML) 30 ML SDV ONE (21:51)
[2018-08-27] MEDS ORDERED: OXYTOCIN/NORMAL SALINE 20 UNIT/1,000 ML RTUINJ ONE (21:51)
[2018-08-27] MEDS ORDERED: OXYTOCIN 10 UNIT/ML VIAL ONE (21:51)
--- NOTE | 2018-08-27 22:03 | Admission Physical ---
Datetime Report Generated by CPN: 08/27/2018 22:03 CURRENT ADMISSION Chief Complaint: Uterine Contractions Indication for Induction: Not Applicable Admit Impression : Term, Intrauterine ; Active Labor; Intact Membranes Admit Plan: Admit to Unit; Initiate Labor Protocol ALLERGIES Medication Allergies: Yes Medication Allergies: cephalexin (03/09/2018) Latex: No Latex Allergies OBSTETRICAL HISTORY EDC: 08/30/2018 00:00 : 2 Para: 1 Term: 0 : 1 Livin Cesareans: 0 Gestational Diabetes: No Rh Sensitization: No Incompetent Cervix: No LESTER: No Infertility: No ART Treatment: No Uterine Anomaly: No IUGR: No Hx Previous C/S: No Macrosomia: No Hx Loss/Stillborn: No PIH: No Hx : No Placenta Previa/Abruption: No Depression/PP Depression: No PTL/PROM: No Post Hemorrhage: No Current Procedures: Ultrasound; NST Obstetrical History Comments: G1- 34.2 female SEE RECORDS Alcohol: No Marijuana : No Cocaine: No Other Illicit Drugs: No Cigarettes: Never Smoker. [id number] MEDICAL HISTORY Diabetes: No Blood Transfusion: No Pulmonary Disease (Asthma, TB): No Breast Disease: No Hypertension: No Human Capital Manager Surgery: No Heart Disease: No Hosp/Surgery: Yes Autoimmune Disorder: No Anesthetic Complications: No Kidney Disease: No Abnormal Pap Smear: No Neuro/Epilepsy: No Psychiatric Disorders: No Other Medical Diseases: No Hepatitis/Liver Disease: No Significant Family History: No Varicosities/Phlebitis: No Trauma/Violence : No Thyroid Dysfunction: No Medical History Comments: childbirth and naty 03/2018 INFECTIOUS HISTORY Gonorrhea: No Genital Herpes: No Chlamydia: No Syphilis: No HIV/AIDS Exposure: No HPV: No PHYSICAL EXAM General: Normal HEENT: Normal Neurologic: Normal Thyroid: Deferred Heart: Normal Lungs: Normal Breast: Deferred Back: Normal Abdomen: Normal Genitourinary Exam: Normal Extremities: Normal DTRs: Normal Pelvic Type: Adequate Vital Signs: Reviewed VAGINAL EXAM Dilatation: 5 Effacement: 75 Station: -1 Contraction Comments: irreg FETUS A EGA: 39.4 Monitoring: External US FHR- Baseline: 125 Variability: Moderate 6-25bpm Accelerations: 15X15 Decelerations: None FHR Category: Category I Presentation: Vertex Admit Comment: 18yo at 39+4ega presents to labor and delivery for uterine ctx. She is followed this with [facility] but decided to deliver here since provider at [facility] is deployed. SHe is GBS negative. Prior delivery was at 34.2ega for unstoppable labor and delivered female 5#. She declined 17OHP with naval. she was initially 3cm and after 2 hours of ambulation changed to 4-5cm. Admit to labor and delivery and augment if needed. epidural upon patient request. PLANS FOR LABOR AND DELIVERY Labor and Delivery: Plan Pain Management: Epidural Feeding Preference: Breast Circumcision: Yes INFORMED CONSENT Informed Consent Obtained: Vaginal Delivery; Risks, Benefits and Alternatives Discussed Signature: with User ID: [email or web address]
[2018-08-27] MEDS ORDERED: BUPIVACAINE HCL 0.25 % INJ/PF (2.5 MG/1 ML) 30 ML VIAL ONE (22:13)
[2018-08-27] MEDS ORDERED: EPHEDRINE SULFATE INJ 50 MG/1 ML AMPULE ONE (22:13)
[2018-08-27] MEDS ORDERED: FENTANYL/BUPIVACAINE/NS/PF 300 MCG/150 ML RTUINJ EPI ONE (22:13)
[2018-08-28] MEDS ORDERED: OXYTOCIN/NORMAL SALINE 20 UNIT/1,000 ML RTUINJ IV PRN ×2 (00:28→02:58)
[2018-08-28] MEDS ORDERED: DIBUCAINE 1% OINTMENT 56 GM TP PRN (02:58)
[2018-08-28] MEDS ORDERED: ACETAMINOPHEN 325 MG TABLET PO PRN (02:58)
[2018-08-28] MEDS ORDERED: ZOLPIDEM TARTRATE 5 MG TABLET PO PRN (02:58)
[2018-08-28] MEDS ORDERED: PSEUDOEPHEDRINE HCL 30 MG TABLET PO PRN (02:58)
[2018-08-28] MEDS ORDERED: ACETAMINOPHEN WITH CODEINE #3 TABLET PO PRN ×2 (02:58)
[2018-08-28] MEDS ORDERED: GLYCERIN/WITCH HAZEL LEAF 1 EACH MED..WIPE TP PRN (02:58)
[2018-08-28] MEDS ORDERED: PROMETHAZINE HCL INJ 25 MG/1 ML VIAL IV PRN (02:58)
[2018-08-28] MEDS ORDERED: NA PHOS,M-B/NA PHOS,DI-BA (ADULT) 133 ML ENEMA PR PRN (02:58)
[2018-08-28] MEDS ORDERED: DIPH/PERTUSS(ACELL)/TETANUS VAC/PF 0.5 ML SYR (>=10YO) IM PRN (02:58)
[2018-08-28] MEDS ORDERED: MAGNESIUM HYDROXIDE SUSP 30 ML UDCUP PO PRN (02:58)
[2018-08-28] MEDS ORDERED: PROMETHAZINE HCL 25 MG SUPP.RECT PR PRN (02:58)
[2018-08-28] MEDS ORDERED: MEASLES,MUMPS&RUBELLA VACC/PF 0.5 ML VIAL SUBCUT PRN (02:58)
[2018-08-28] MEDS ORDERED: BENZOCAINE/MENTHOL AEROSOL SPRAY 56 ML TOP PRN (02:58)
[2018-08-28] MEDS ORDERED: DIPHENHYDRAMINE HCL 25 MG CAPSULE PO PRN (02:58)
[2018-08-28] MEDS ORDERED: IBUPROFEN 800 MG TABLET ONE (03:36)
--- NOTE | 2018-08-28 04:03 | Delivery Summary ---
Del Sum A-C Datetime Report Generated by CPN: 08/28/2018 04:02 DELIVERY PERSONNEL DELIVERY PERSONNEL: [id number] Delivery Doctor:: Erna Lucio MD Anesthesiologist:: Rodney Delgado MD Labor and Delivery Nurse:: Marva Subramanian RN Labor and Delivery Nurse:: Harpal Aaron RN Electrical Journeyman/INSIDE SALES ADMINISTRATOR: Devorah Trujillo ST MATERNAL INFORMATION Delivery Anesthesia: Epidural Medications After Delivery: Pitocin Bolus-Please Comment Meds After Delivery Comment: 20 units pit bolus per protocol Estimated Blood Loss (ml): 300 Maternal Complications: None Provider Comments: VMI delivered in [place] presentation. No nuchal cord. Shoulders and body delivered without difficulty. Cord doubly clamped and cut and to maternal abd for NRP. Placenta delivered intact spontaneously. Mother and baby stable upon provider leaving the room. FF at U. LABOR SUMMARY EDC: 08/30/2018 00:00 Labor Anesthesia: Epidural LABOR INFORMATION Reason for Induction: Not Applicable Onset of Labor: 08/27/2018 19:54 Complete Dilatation: 08/28/2018 02:32 Oxytocin: N/A Group B Beta Strep: negative Steroids Given: None Reason Steroids Not Administered: Not Applicable MEMBRANES Membranes Rupture Method: Artificial Rupture of Membranes: 08/28/2018 21:18 Length of Rupture (hr): -18.53 Amniotic Fluid Color: Clear Amniotic Fluid Amount: Moderate Amniotic Fluid Odor: Normal STAGES OF LABOR Stage 1 hr: 6 Stage 1 min: 38 Stage 2 hr: 0 Stage 2 min: 14 Stage 3 hr: 0 Stage 3 min: 3 Total Time in Labor hr: 6 Total Time in Labor min: 55 VAGINAL DELIVERY Episiotomy: None Laceration #1: None Laceration Extension #1: N/A Laceration Repair: Not Applicable Sponge Count Correct: Yes Sharps Count Correct: Yes CSECTION DELIVERY Primary Indication: N/A CSection Incision: N/A BABY A INFORMATION Infant Delivery Date/Time: 08/28/2018 02:46 Method of Delivery: Vaginal Born in Route : No : N/A Forceps: N/A Vacuum Extraction: N/A Shoulder Dystocia : No PRESENTATION/POSITION BABY A Presentation: Cephalic Cephalic Presentation: Vertex Vertex Position: Right Occipital Anterior Breech Presentation: N/A PLACENTA INFORMATION BABY A Placenta Delivery Time : 08/28/2018 02:49 Placenta Method of Delivery: Spontaneous Placenta Status: Delivered SCORES BABY A Heart Rate 1 min: >100 bpm Resp Effort 1 min: Good Cry Reflex Irritability 1 min: Cough or Sneeze or Pulls Away Muscle Tone 1 min: Active Motion Color 1 min: Body [place], Extremities Blue Resuscitation Effort 1 min: Tactile Stimulation SCORE 1 MIN: 9 Heart Rate 5 min: >100 bpm Resp Effort 5 min: Good Cry Reflex Irritability 5 min: Cough or Sneeze or Pulls Away Muscle Tone 5 min: Active Motion Color 5 min: Body [place], Extremities Blue Resuscitation Effort 5 min: Tactile Stimulation SCORE 5 MIN: 9 INFANT INFORMATION BABY A Sex: Male IDENTIFICATION BABY A Verification Date/Time: 08/28/2018 02:59 ID Band Number: [id number] Mother's Name Verified: Yes RN Verifying Infant: C. Marilynn, RN H. Ross, [employer]BEST[employer] WORKER HELPER WEIGHT/LENGTH BABY A Birthweight (gm): 3336 Infant Weight (lb): 7 Weight (oz): 6 CORD INFORMATION BABY A No. Cord Vessels: 3 Nuchal Cord : N/A Cord Blood Taken: Yes-For Storage (Mom's Blood type +) Suction: Mouth; Nose ASSESSMENT BABY A Skin to Skin: Yes SIGNATURES Signature: with User ID: [email or web address]
[2018-08-28] MEDS: PROMETHAZINE HCL 25 MG TABLET PO PRN (05:23)
[2018-08-28] MEDS: IBUPROFEN 800 MG TABLET PO SCH ×3 (06:05→21:13)
[2018-08-28] MEDS: SENNOSIDES/DOCUSATE 8.6-50 MG 1 EACH TABLET PO SCH (09:39)
[2018-08-28] MEDS: DOCUSATE SODIUM 100 MG CAPSULE PO SCH ×2 (09:39→18:29)
[2018-08-28] MEDS: FAMOTIDINE 20 MG TABLET PO SCH ×2 (09:39→21:13)
[2018-08-28] MEDS: FERROUS SULFATE 325 MG TABLET PO SCH ×2 (09:39→18:29)
[2018-08-28] MEDS: PRENATAL VITAMIN W DHA CAPSULE PO SCH (09:39)
[2018-08-29] MEDS: IBUPROFEN 800 MG TABLET PO SCH ×3 (05:16→21:50)
[2018-08-29 06:52] LABS: HEMATOCRIT 34.1 % (36.0-47.0); HEMOGLOBIN 11.7 g/dL (12.0-15.5); MEAN CORPUSCULAR HEMOGLOBIN 30.9 pg (27.0-33.4); MEAN CORPUSCULAR HGB CONC 34.4 g/dL (32.0-36.0); MEAN CORPUSCULAR VOLUME 90 fl (80-97); PLATELET COUNT 147 10^3/uL (150-450); RED BLOOD COUNT 3.79 10^6/uL (3.72-5.28); RED CELL DISTRIBUTION WIDTH 14.3 % (11.5-14.0); WHITE BLOOD COUNT 6.7 10^3/uL (4.0-10.5)
[2018-08-29] MEDS: PROMETHAZINE HCL 25 MG TABLET PO PRN (09:12)
[2018-08-29] MEDS: FERROUS SULFATE 325 MG TABLET PO SCH ×2 (10:01→18:38)
[2018-08-29] MEDS: FAMOTIDINE 20 MG TABLET PO SCH ×2 (10:01→21:50)
[2018-08-29] MEDS: SENNOSIDES/DOCUSATE 8.6-50 MG 1 EACH TABLET PO SCH (10:01)
[2018-08-29] MEDS: PRENATAL VITAMIN W DHA CAPSULE PO SCH (10:01)
[2018-08-29] MEDS: DOCUSATE SODIUM 100 MG CAPSULE PO SCH ×2 (10:01→18:38)
[2018-08-29 10:38] LABS: HEPATITIS C VIRUS AB <0.1 s/co ratio (0.0-0.9)
[2018-08-29 10:51] LABS: HEPATITS B SURFACE ANTIGEN Negative (Negative)
--- NOTE | 2018-08-29 11:31 | PDOC PROGRESS REPORT ---
Subjective-OB Progress Note for:: 08/29/18 Subjective: 18yo G2 now P2 s/p ppd 1. Patient ambulating and without difficulty. Pain well controlled with medication. Denies any concerns Physical Exam (OB) Vital Signs: Temp Pulse Resp BP Pulse Ox 97.6 F 72 15 122/78 99 08/29/18 07:34 08/29/18 07:34 08/29/18 07:34 08/29/18 07:34 08/29/18 07:34 Intake & Output 08/28/18 08/29/18 08/30/18 06:59 06:59 06:59 Intake Total 480 Balance 480 - General General Appearance: Appears well In distress: None - PIH/Pre-Eclampsia Clonus: Negative Headache: Absent Epigastric Pain: No Visual Changes: No - Episiotomy/Laceration Site Condition: N/A - Lochia Lochia Amount: Scant < 10 ml Lochia Color: Rubra/Red - Abdomen Description: Soft, Round Hernia Present: No Fundal Description: Firm, Midline Fundal Height: u/u - u/2 - Respiratory Respiratory Status: No respiratory distress - Extremities Upper extremity: Normal inspection Lower extremities: Normal inspection - Neurological Cognition: Normal Orientation: AAOx4 - Psychological Associated symptoms: Normal affect, Normal mood Objective-Diagnostic Laboratory: 08/29/18 06:32 08/29/18 06:32 WBC 6.7 RBC 3.79 Hgb 11.7 L Hct 34.1 L MCV 90 MCH 30.9 MCHC 34.4 RDW 14.3 H Plt Count 147 L Assessment and Plan(PN) - Assessment and Plan (1) Vaginal delivery Is this a current diagnosis for this admission?: Yes Plan: routine pp care (2) History of asthma Is this a current diagnosis for this admission?: Yes Plan: routine pp care (3) History of delivery Is this a current diagnosis for this admission?: Yes Plan: term delivery this visit - Time Spent with Patient Time with patient: Less than 15 minutes Medications reviewed and adjusted accordingly: Yes - Disposition Anticipated Discharge: Home Within: within 24 hours
[2018-08-30] MEDS: IBUPROFEN 800 MG TABLET PO SCH (05:15)
[2018-08-30 08:38] VITALS: BP 117/83
--- NOTE | 2018-08-30 09:53 | PDOC PROGRESS REPORT ---
Subjective-OB Progress Note for:: 08/30/18 Subjective: Ready to go home. Physical Exam (OB) Vital Signs: Temp Pulse Resp BP Pulse Ox 97.8 F 85 15 117/83 100 08/30/18 07:48 08/30/18 07:48 08/30/18 07:48 08/30/18 07:48 08/30/18 07:48 Intake & Output 08/29/18 08/30/18 08/31/18 06:59 06:59 06:59 Intake Total 980 Balance 980 - PIH/Pre-Eclampsia Clonus: Negative Headache: Absent Epigastric Pain: No Visual Changes: No - Lochia Lochia Amount: Scant < 10 ml Lochia Color: Rubra/Red - Abdomen Description: Soft Hernia Present: No Bowel Sounds: Normoactive Flatus Presence: Present Stool: Yes Fundal Description: Firm Fundal Height: u/u - u/2 Objective-Diagnostic Laboratory: 08/29/18 06:32 Assessment and Plan(PN) - Time Spent with Patient Medications reviewed and adjusted accordingly: Yes - Disposition Anticipated Discharge: Home
[2018-08-30] MEDS: FAMOTIDINE 20 MG TABLET PO SCH (09:54)
[2018-08-30] MEDS: DOCUSATE SODIUM 100 MG CAPSULE PO SCH (09:54)
[2018-08-30] MEDS: SENNOSIDES/DOCUSATE 8.6-50 MG 1 EACH TABLET PO SCH (09:54)
[2018-08-30] MEDS: PRENATAL VITAMIN W DHA CAPSULE PO SCH (09:54)
[2018-08-30] MEDS: FERROUS SULFATE 325 MG TABLET PO SCH (09:54)
--- NOTE | 2018-08-30 09:58 | PDOC DISCHARGE SUMMARY ---
Final Diagnosis Discharge Date: 08/30/18 - Final Diagnosis (1) History of delivery Is this a current diagnosis for this admission?: Yes (2) Is this a current diagnosis for this admission?: Yes (3) Vaginal delivery Is this a current diagnosis for this admission?: Yes (4) History of asthma Is this a current diagnosis for this admission?: Yes Discharge Data - Discharge Medication Home Medications: Vit 75/Iron/Folic/Om3 [One A Day Dha Pack] 1 PO DAILY 08/23/18 Gestational Age: 39 Reason(s) for Admission: Onset of Labor Procedures: Ultrasound Intrapartum Procedure(s): Spontaneous Vaginal Delivery - Data Baby 1 Male at 1 minute: 9 at 5 minutes: 9 Weight: 3.345 kg Home with Mother: Yes Complications: No - Diagnosis Test Laboratory: Temp Pulse Resp BP Pulse Ox 97.8 F 85 15 117/83 100 08/30/18 07:48 08/30/18 07:48 08/30/18 07:48 08/30/18 07:48 08/30/18 07:48 08/27/18 08/27/18 08/29/18 18:15 20:54 06:32 RBC 3.94 3.79 Hgb 12.0 11.7 L Hct 35.3 L 34.1 L Urine Opiates Screen NEGATIVE - Discharge information/Instructions Discharge Activity: Activity As Tolerated, Balance Activity w/Rest, Pelvic Rest, Slowly Increase Activity, No tub bath Discharge Diet: Regular Disposition: HOME, SELF-CARE Follow up with: [facility] in: 4, Weeks
== END 2018-08-30 13:12 | disposition home or self-care (01) | DRG 807 ==
LOC: LC 17:48 → LR 20:09 → 2S 08-28 04:10
PROVIDERS: ADMIT Student in an Organized Health Care Education/Training Program; ATTEND Student in an Organized Health Care Education/Training Program
PROC: 10E0XZZ Delivery of Products of Conception, External Approach (ICD-10-PCS; principal; 2018-08-28)
DX: O99.52 Diseases of the respiratory system complicating childbirth (principal); Z37.0 Single live birth; J45.909 Unspecified asthma, uncomplicated; Z3A.39 39 weeks gestation of pregnancy
CPT/HCPCS: 36415; 80307; 81005; 85025; 85027; 86592; 86803; 86804; 86850; 86900; 86901; 87340; J2590; J3010; J3490

== ENCOUNTER → 2019-07-10 | Outpatient (CLI) | payer OTHER ==
--- NOTE | 2019-07-10 12:37 | RADIOLOGY REPORT (SQ) ---
EXAM DESCRIPTION: ANKLE RIGHT COMPLETE IMAGES COMPLETED DATE/TIME: 07/10/2019 12:28 pm REASON FOR STUDY: PAIN IN RIGHT ANKLE AND JOINTS OF RIGHT FOOT,FALL SAME LEV FROM SLIP/TRIP W M25.57 1 PAIN IN RIGHT ANKLE AND JOINTS OF RIGHT FOOT S93.491A SPRAIN OF OTHER LIGAMENT OF RIGHT ANKLE, IN ITIAL EN W01.0XXA FALL SAME LEV FROM SLIP/TRIP W/O STRIKE AGAINST OBJ COMPARISON: None. NUMBER OF VIEWS: Three views. TECHNIQUE: AP, lateral, and oblique radiographic images acquired of the right ankle. LIMITATIONS: None. FINDINGS: MINERALIZATION: Normal. BONES: No acute fracture or dislocation. No worrisome bone lesions. JOINTS: No effusions. SOFT TISSUES: No soft tissue swelling. No foreign body. OTHER: No other significant finding. IMPRESSION: NEGATIVE STUDY OF THE RIGHT ANKLE. NO RADIOGRAPHIC EVIDENCE OF ACUTE INJURY. TECHNICAL DOCUMENTATION: JOB ID: [id number] 2010 [employer]- All Rights Reserved Reading location - IP/workstation name: [email or web address]
== END ==
LOC: OD 12:14
PROVIDERS: ATTEND Physician Assistant
DX: S93.491A Sprain of other ligament of right ankle, initial encounter (principal); W01.0XXA Fall on same level from slipping, tripping and stumbling without subsequent striking against object, initial encounter; M25.571 Pain in right ankle and joints of right foot